=== PATIENT | male | born 1980 | race Caucasian/White ===

== ENCOUNTER 2017-02-12 22:48 | Emergency (ER) | payer OTHER ==
[~2017-02-12] VITALS: Ht 190.5 cm; Wt 103.1 kg
[~2017-02-12 22:48] MED LIST: CLONIDINE HCL0.1 MG PO; NOHOMEMEDS; TRAZODONE HCL50 MG PO
[2017-02-12 22:53] VITALS: BP 125/97
== END 2017-02-13 02:00 | disposition left against medical advice (07) ==
LOC: EME 22:48
DX: L53.9 Erythematous condition, unspecified (principal); Z53.21 Procedure and treatment not carried out due to patient leaving prior to being seen by health care provider

== ENCOUNTER 2017-05-09 16:37 | Emergency (ER) | payer OTHER ==
[~2017-05-09] VITALS: Ht 190.5 cm; Wt 98.7 kg
[2017-05-09 17:00] VITALS: BP 119/77
[2017-05-09 17:41] LABS: BASOPHIL COUNT 0.1 K/uL (0-0.1); EOSINOPHIL (%) 1.4 % (0-5); EOSINOPHIL COUNT 0.1 K/uL (0-0.3); HEMATOCRIT 41.5 % (38.0-50.0); IMMATURE GRANULOCYTE (%) 0.5 % (0.0-0.7); IMMATURE GRANULOCYTE COUNT 0.1 K/uL; INSTRUMENT ABS NEUTROPHIL CT 5.7 K/uL; LYMPHOCYTE COUNT 3.4 K/uL (1.0-2.8); MCH 26.3 PG (29.0-34.0); MCHC 32.8 G/DL (30.0-36.0); MCV 80.3 FL (86-99); MEAN PLAT.VOLUME 9.8 uM^3 (9.0-12.4); MONOCYTE (%) 7.6 % (3-12); MONOCYTE COUNT 0.8 K/uL (0-0.8); NEUTROPHIL (%) 56.6 % (45-76); NEUTROPHIL COUNT 5.7 K/uL (1.8-6.4); PLATELET COUNT 408 K/uL (156-360); RBC DIS.WIDTH-CV 13.6 % (11.8-14.6); RBC DIS.WIDTH-SD 40.1 % (39-53); RED BLOOD COUNT 5.17 M/uL (4.00-5.50); WHITE BLOOD COUNT 10.1 K/uL (4.1-10.2)
[2017-05-09 17:48] LABS: CHLORIDE 101 mEq/L (99-109); POTASSIUM 3.8 mEq/L (3.7-5.4)
[2017-05-09 17:49] LABS: SODIUM 139 mEq/L (136-147)
[2017-05-09 17:50] LABS: GLUCOSE 88 mg/dL (70-99)
[2017-05-09 17:52] LABS: ANION GAP 15 MEQ/L (2-14)
[2017-05-09 17:54] LABS: GFR ESTIMATE (CALCULATED) > 59 mL/min/ (58.99-99999)
[2017-05-09 17:55] LABS: UREA NITROGEN (BUN) 13 mg/dL (9-23)
== END 2017-05-09 19:27 | disposition left against medical advice (07) ==
LOC: EME 16:37
DX: S51.831A Puncture wound without foreign body of right forearm, initial encounter (principal); W29.4XXA Contact with nail gun, initial encounter; M79.89 Other specified soft tissue disorders; R23.8 Other skin changes; Z53.21 Procedure and treatment not carried out due to patient leaving prior to being seen by health care provider
CPT/HCPCS: 80048; 81003; 83605; 85025

== ENCOUNTER 2017-10-01 18:13 | Emergency (ER) | payer OTHER ==
[~2017-10-01] VITALS: Ht 190.5 cm; Wt 101.0 kg
[2017-10-01] MEDS ORDERED: NARCAN4 MG NS (19:38)
[2017-10-01 20:04] VITALS: BP 141/93
== END 2017-10-01 20:05 | disposition home or self-care (01) ==
LOC: EME 18:16
DX: T40.1X1A Poisoning by heroin, accidental (unintentional), initial encounter (principal); Z87.891 Personal history of nicotine dependence
CPT/HCPCS: 99281; 99283